=== PATIENT | male | born 1955 | race Caucasian/White ===

== ENCOUNTER → 2017-10-05 | Outpatient (REF) | payer BC ==
[2017-10-05 14:49] LABS: FOLATE 19.2 NG/ML; VITAMIN B12 LEVEL 712 PG/ML
[2017-10-09 00:10] LABS: METHYLMALONIC ACID 171 nmol/L (0-378)
== END ==
LOC: M LABNEURO 11:27
DX: E53.8 Deficiency of other specified B group vitamins (principal)
CPT/HCPCS: 82746